=== PATIENT | female | born 1990 | race Caucasian/White ===

== ENCOUNTER 2017-04-23 12:46 | Emergency (ER) | payer MEDICAID ==
[~2017-04-23 12:46] MED LIST: DERMOPLAST PAIN78 GM TP; LANSINOH TP; MOTRIN-DPS800 MG PO; NEWMANS NIPPLE CREAM TP; PRENATAL VITAM1 EAC1 PO
--- NOTE | 2017-04-27 08:56 | ER ---
ADMIT: 04/23/2017 RM/LOC: [facility] MR#: [id number] [address] [id number] [place] [address] [place] [id number] Emergency Room Report SEX: F AGE: 26 : 1990 DATE: 04/23/2017 ADDENDUM: CHIEF COMPLAINT: Vaginal bleeding with passing of fetus. HISTORY OF PRESENT ILLNESS: A 26-year-old who is on the Depo shot. She said she is due for it May 06. She said she has not bled at all with the Depo shot but started bleeding this morning with clots and again passed a fetus. COURSE IN EMERGENCY ROOM: CBC, beta HCG, and her blood type was done. She has A positive blood. Her white count is 21.6, hemoglobin 11.8. Beta hCG is 28,454. Ultrasound shows what appears is just clots at this time. I did speak with Dr. Leavitt regarding this patient, they are going to follow her up tomorrow at 0920 hours to recheck her white count and discuss further control. CLINICAL IMPRESSION: Miscarriage, complete. JULIANA Lang / Ismael Rivera MD / brendal JOB #: [id number] CC: Ismael Rivera MD, Attending Physician Jailyn Leavitt MD, Family Physician
== END 2017-04-23 14:56 | disposition home or self-care (01) ==
LOC: ER 12:46
DX: O03.9 Complete or unspecified spontaneous abortion without complication (principal)